=== PATIENT | male | born 1995 | race Caucasian/White ===

== ENCOUNTER 2023-04-23 09:19 | Emergency (ER) | payer OTHER ==
[2023-04-23 09:30] VITALS: BP 125/59; PULSE 55; RESP 18; TEMP 98.4; BMI 39.5
[2023-04-23] MEDS ORDERED: IBUPROFEN 400 MG TABLET (FP) PO ONE (11:37)
[2023-04-23] MEDS ORDERED: LIDOCAINE 4% PATCH TP ONE (11:38)
[2023-04-23] MEDS: LIDOCAINE 5% TOPICAL PATCH TP ONE (11:43)
[2023-04-23] MEDS: IBUPROFEN 400 MG TABLET (FP) PO ONE (11:43)
[2023-04-23] MEDS ORDERED: LIDOCAINE PATCH REMOVAL MC ONE (22:00)
== END 2023-04-23 13:11 | disposition home or self-care (01) ==
LOC: JER 09:19
DX: R07.89 Other chest pain (principal); R06.02 Shortness of breath
CPT/HCPCS: 71046-TC-FY; 93005; 93010; 99284-25

== ENCOUNTER 2023-07-13 13:31 | Observation (INO) | payer OTHER ==
[2023-07-13 13:47] VITALS: RESP 18; BMI 37.9
[2023-07-13] MEDS: SODIUM CHLORIDE 1,000 ML IV STA (15:25)
[2023-07-13] MEDS ORDERED: NAPROXEN 500 MG TABLET ONE (15:29)
[2023-07-13 15:30] LABS: BASO % 0.9 % (0-2.0); EOS % 2.2 % (0-4.5); HEMATOCRIT 39.3 % (35.4-49); HEMOGLOBIN 13.8 GM/dL (11.7-16.9); LYMPH % 28.4 % (8-40); MCH 28.8 pg (25.7-33.7); MEAN CELL VOLUME 82.1 fl (80-96); MEAN PLT VOLUME 8.7 fl (7.5-11.1); MONO % 5.9 % (3.8-10.2); NEUT % 62.6 % (42.8-82.8); PLATELET COUNT 226 10^3/uL (134-434); RBC 4.78 M/mm3 (4.00-5.60); RDW 14.1 % (11.9-15.9); WHITE BLOOD COUNT 9.3 K/mm3 (4.0-10.0)
[2023-07-13] MEDS: NAPROXEN 500 MG TABLET PO ONE (15:34)
[2023-07-13 15:50] LABS: CALCIUM 9.4 mg/dL (8.5-10.1)
[2023-07-13 15:51] LABS: ALBUMIN 4.2 g/dl (3.4-5.0); BLOOD UREA NITROGEN 12.1 mg/dL (7-18)
[2023-07-13 15:54] LABS: CREATININE 0.9 mg/dL (0.55-1.3)
[2023-07-13 15:55] LABS: TOT PROT 7.5 g/dl (6.4-8.2)
[2023-07-13 15:56] LABS: BILIRUBIN,TOTAL 0.8 mg/dL (0.2-1)
[2023-07-13 17:22] LABS: INR 1.1 (0.83-1.09); PROTHROMBIN TIME (PATIENT) 12.4 SEC (9.7-13.0)
[2023-07-13 17:25] LABS: ACTIVATED PTT 34.2 SECONDS (25.2-36.5)
[2023-07-13] MEDS ORDERED: ASPIRIN 81 MG CHEWABLE TABLETS ONE (18:47)
[2023-07-13] MEDS: ASPIRIN 81 MG CHEWABLE TABLETS PO ONE (18:58)
[2023-07-13] MEDS ORDERED: NAPROXEN 500 MG TABLET PO PRN (21:41)
[2023-07-13 22:50] LABS: URINE APPEARANCE CLOUDY; URINE BILIRUBIN NEGATIVE (NEGATIVE); URINE COLOR YELLOW; URINE GLUCOSE (UA) NEGATIVE (NEGATIVE); URINE KETONE TRACE (NEGATIVE); URINE LEUK ESTERASE NEGATIVE (NEGATIVE); URINE NITRITE NEGATIVE (NEGATIVE); URINE PROTEIN TRACE (NEGATIVE)
[2023-07-13 23:49] LABS: OPIATES, URI NEGATIVE (NEGATIVE); URINE BARBITURATES NEGATIVE (NEGATIVE); URINE BENZODIAZEPINES NEGATIVE (NEGATIVE)
[2023-07-13 23:50] LABS: COCAINE, UR NEGATIVE (NEGATIVE); PHENCYCLIDINE,URINE NEGATIVE (NEGATIVE)
[2023-07-14 00:36] LABS: METHADONE, UR NEGATIVE (NEGATIVE)
[2023-07-14 00:49] LABS: URINE AMPHETAMINES NEGATIVE (NEGATIVE)
[2023-07-14 03:09] LABS: BILIRUBIN,DIRECT 0.2 mg/dL (0.0-0.2)
[2023-07-14 07:38] LABS: BASO % 0.8 % (0-2.0); EOS % 2.6 % (0-4.5); HEMATOCRIT 36.3 % (35.4-49); HEMOGLOBIN 12.8 GM/dL (11.7-16.9); LYMPH % 31.8 % (8-40); MCH 29.2 pg (25.7-33.7); MCHC 35.4 g/dl (32.0-35.9); MEAN CELL VOLUME 82.7 fl (80-96); MEAN PLT VOLUME 9.2 fl (7.5-11.1); NEUT % 58.8 % (42.8-82.8); PLATELET COUNT 205 10^3/uL (134-434); RBC 4.39 M/mm3 (4.00-5.60); RDW 13.9 % (11.9-15.9); WHITE BLOOD COUNT 8.7 K/mm3 (4.0-10.0)
[2023-07-14 07:50] LABS: POTASSIUM 4.1 mmol/L (3.5-5.1)
[2023-07-14 07:52] LABS: CALCIUM 8.2 mg/dL (8.5-10.1)
[2023-07-14 07:53] LABS: ALBUMIN 3.6 g/dl (3.4-5.0); BLOOD UREA NITROGEN 15.5 mg/dL (7-18)
[2023-07-14 07:56] LABS: BILIRUBIN,DIRECT 0.2 mg/dL (0.0-0.2); CREATININE 0.9 mg/dL (0.55-1.3); PHOSPHOROUS 4.6 mg/dL (2.5-4.9)
[2023-07-14 07:57] LABS: BILIRUBIN,TOTAL 0.5 mg/dL (0.2-1); TOT PROT 6.4 g/dl (6.4-8.2)
[2023-07-14 07:58] LABS: CHOLESTEROL 149 mg/dL (50-200)
[2023-07-14 07:59] LABS: LDL CHOLESTEROL (ONLY SJRH) 88 mg/dL (5-100)
[2023-07-14 08:02] LABS: HDL CHOLESTEROL 28 mg/dL (40-60)
[2023-07-14 08:20] LABS: HEPATITIS B SURFACE AG MATERN NON-REACTIVE (NONREACTIVE)
[2023-07-14] MEDS: ENOXAPARIN NA (PORCINE) 40 MG/0.4 ML DISP.SYRIN SQ SCH (10:02)
[2023-07-14] MEDS: ASPIRIN COATED 81 MG TABLET.EC PO SCH (10:02)
[2023-07-14] MEDS: IBUPROFEN 400 MG TABLET (FP) PO SCH (13:55)
[2023-07-14] MEDS ORDERED: ASPIRIN 81 MG CHEWABLE TABLETS PO ONE (18:06)
[2023-07-14 18:12] VITALS: BP 112/55; PULSE 68; TEMP 97.9
[2023-07-15] MEDS ORDERED: FENOFIBRIC ACID 135 MG CAP PO SCH (10:00)
== END 2023-07-14 18:24 | disposition home or self-care (01) ==
LOC: JER 13:31 → JERBED 18:09 → OBSVTOIN 21:38 → INTOOBSV 21:38 → J4W 23:30
PROVIDERS: ADMIT Internal Medicine; ATTEND Internal Medicine
PROC: 3E023GC Introduction of Other Therapeutic Substance into Muscle, Percutaneous Approach (ICD-10-PCS; principal; 2023-07-13)
PROC: 3E0337Z Introduction of Electrolytic and Water Balance Substance into Peripheral Vein, Percutaneous Approach (ICD-10-PCS; 2023-07-13)
DX: R07.89 Other chest pain (principal); E78.1 Pure hyperglyceridemia; R79.89 Other specified abnormal findings of blood chemistry; K76.0 Fatty (change of) liver, not elsewhere classified; E66.01 Morbid (severe) obesity due to excess calories; Z68.37 Body mass index [BMI] 37.0-37.9, adult
CPT/HCPCS: 0241U-QW; 36415; 71046-TC-FY; 76705-TC; 80053; 80061; 80307; 81003; 82248; 83036; 83690; 83735; 84100; 84484; 85025; 85379; 85610; 85730; 86705; 87086; 87340; 87517; 87522; 87536; 93005; 93010; 93308; 99285-25; G0378